=== PATIENT | female | born 1965 | race African-American/Black ===

== ENCOUNTER 2025-01-13 12:19 | Emergency (ER) | payer OTHER ==
[~2025-01-13] VITALS: Ht 162.6 cm; Wt 84.9 kg
[2025-01-13 12:20] VITALS: TEMP 36.9; O2SAT 100
[2025-01-13 12:59] VITALS: O2SAT 100
[2025-01-13 13:14] LABS: BASOPHILS % 0.7 % (0.0-2.0); EOSINOPHILS % 0.5 % (0.0-5.0); HEMATOCRIT. 28.2 % (36.0-48.0); HEMOGLOBIN. 9.7 g/dL (12.0-16.0); MEAN CORPUSCULAR HEMOGLOBIN 32.9 pg (28.0-32.0); MEAN CORPUSCULAR HGB CONC 34.4 g/dL (31.0-37.0); MEAN CORPUSCULAR VOLUME 95.7 fL (81.0-99.0); MEAN PLATELET VOLUME 7.4 fl (7.4-10.4); MONOCYTES % 10.4 % (2.0-8.0); NEUTROPHILS % 37.4 % (40.0-76.0); PLATELET 131 x1000/uL (130-400); RED BLOOD CELL COUNT 2.95 mill/uL (4.2-5.4); RED CELL DISTRIBUTION WIDTH 18.2 % (11.6-14.6); WHITE BLOOD COUNT 4.1 x1000/uL (4.5-11.0)
[2025-01-13 13:24] LABS: INR 1.5; PROTHROMBIN TIME 15.1 sec (9.6-11.0)
[2025-01-13 13:28] LABS: CHLORIDE 110 mEq/L (98-107); POTASSIUM 3.7 mEq/L (3.5-5.1); SODIUM 140 mEq/L (136-145)
[2025-01-13 13:29] LABS: CARBON DIOXIDE 24 mEq/L (21-32)
[2025-01-13 13:30] LABS: CALCIUM 8.6 mg/dL (8.7-10.4)
[2025-01-13] MEDS: IOHEXOL-350 100 ML BOTTLE ONE (13:33)
[2025-01-13 13:35] LABS: ETHANOL BLOOD < 10 mg/dL (<10); GLUCOSE 123 mg/dL (70-105); TROPONIN I HIGH SENSITIVITY 6 ng/L (3.0-34); UREA NITROGEN BLOOD 18 mg/dL (9-23)
[2025-01-13 15:48] LABS: AMMONIA 82 uMol/L (<32)
[2025-01-13 16:27] VITALS: BP 137/65; PULSE 83; RESP 12; TEMP 98.4
== END 2025-01-13 17:57 | disposition left against medical advice (07) ==
LOC: ER 12:19 → EDBD 15:18 → 5WST 15:18 → UNDOADMIN 15:18 → EDBEDREQTM 15:22 → EDBEDREQ 15:22 → ENRESERV 16:48 → UNDODISIN 18:04
DX: R41.82 Altered mental status, unspecified (principal); K76.82 Hepatic encephalopathy; Z86.73 Personal history of transient ischemic attack (TIA), and cerebral infarction without residual deficits
CPT/HCPCS: 80048; 80320; 82140; 85025; 85610; 84484; 36415; 71045; 70496; 70498; 70450; 93005; 99285; Q9967; G0480